=== PATIENT | female | born 1970 ===

== ENCOUNTER 2016-11-23 08:04 | Day surgery (SDC) | payer MEDICAID ==
[2016-11-18 13:23] VITALS: BMI 27.4
[2016-11-23] MEDS ORDERED: Clindamycin 600mg/50ml NS 0 MG/0 ML BAG IVPB ONE (12:51)
[2016-11-23] MEDS ORDERED: Lidocaine 1% Inj (20ml) ONE (12:51)
[2016-11-23] MEDS ORDERED: Bupivacaine 0.25% Inj(30mL) ONE (12:51)
[2016-11-23] MEDS ORDERED: Doxycycline 100 mg Inj ONE (12:54)
[2016-11-23] MEDS ORDERED: Midazolam 2 MG/2 ML VIAL ONE (12:57)
[2016-11-23] MEDS ORDERED: Propofol 10 mg/ml Inj (20 ML) ONE (12:57)
[2016-11-23] MEDS ORDERED: Lidocaine Hydrochloride 5 ML INJ ONE (13:02)
[2016-11-23] MEDS ORDERED: HYDROmorphone 0.5 mg/0.5 ml ISec IVP PRN (13:31)
[2016-11-23] MEDS ORDERED: Oxycodone/Acetaminophen 5/325 mg Tab PO PRN (14:06)
[2016-11-23 15:27] VITALS: RESP 18
[2016-11-23 16:01] VITALS: BP 126/90; PULSE 83; TEMP 98; O2SAT 97
--- NOTE | 2016-11-24 02:19 | OP ---
PROCEDURE DATE: 11/23/2016 PREOPERATIVE DIAGNOSIS: Soft tissue mass of the left leg with associated varicose veins. POSTOPERATIVE DIAGNOSIS: Soft tissue mass of the left leg with associated varicose veins. PROCEDURES PERFORMED: 1. Wide deep excision soft tissue mass with adjacent tissue transfer closure. 2. Stab phlebectomy of varicose veins on the leg. SURGEON: Dashawn Muller MD TYPE OF ANESTHESIA: General. ESTIMATED BLOOD LOSS: 30 mL POSTOPERATIVE CONDITION: Stable. 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 DESCRIPTION OF PROCEDURE: The patient was taken to the operating room. General anesthesia was administered. The patient was placed in the right lateral decubitus position. The left leg was then prepped and draped, and an elliptical incision was made surrounding the 5 cm mass. It was carried down to skin and subcutaneous tissue to the fascial layer completely removed. Bleeding was controlled using the Bovie. A larger blood vessel was repaired. The wound was irrigated with copious amounts of saline solution. Generous tissue flaps were removed using the Bovie and adjacent tissue transverse closure was performed using multiple layers of Monocryl, subcuticular Monocryl and glue. Stab phlebectomy of the remaining pre-marked varicose veins was then performed and the incisions were closed with simple 3-0 Monocryl subcuticular sutures and glue. The patient tolerated the procedure well and returned to the recovery room in stable condition. Dashawn Muller MD
== END 2016-11-23 16:00 | disposition home or self-care (01) ==
LOC: C.SDS 08:04
PROVIDERS: ATTEND Surgery
DX: I80.3 Phlebitis and thrombophlebitis of lower extremities, unspecified (principal); R22.42 Localized swelling, mass and lump, left lower limb
CPT/HCPCS: 11406; 37765; 88304; 88305; J1170; J1885; J2250; J2704; J3010